=== PATIENT | male | born 1975 | race Caucasian/White ===

== ENCOUNTER 2021-06-12 19:48 | Emergency (ER) | payer MEDICAID ==
[~2021-06-12] VITALS: Ht 182.9 cm; Wt 90.7 kg
[2021-06-12 19:48] VITALS: BP 132/92
--- NOTE | 2021-06-12 19:58 | NUR ---
PT BROUGHT TO BED 1 VIA [facility]
--- NOTE | 2021-06-12 20:18 | NUR ---
PT IS A 46 Y/O MALE BIB AMBULANCE WITH C/O STOMACH PAIN , NAUSEA AND GENERAL BODY PAIN. PT WAS TRYING TO BE SOBER BUT STARTED TO DRINK AGAIN. PAIN HAS BEEN FOR 3 DAYS . PT WAS TAKEN TO [facility] TODAY AND WAS GIVEN LIBRIUM. PT COMPLAINS HE HAS BODY ACHES EVERYWHERE. PT ALELRGIC TO BEE STINGS. PT IS SHAKING AND IS INCONTINENT.
[2021-06-12 20:35] LABS: BASOPHILS # (AUTO) 0.2 K/uL (0.00-0.22); BASOPHILS % (AUTO) 3.4 % (0.0-2.0); EOSINOPHILS # (AUTO) 0.6 K/uL (0-0.4); EOSINOPHILS % (AUTO) 13.5 % (0.0-4.0); HEMATOCRIT 36.3 % (36-52); HEMOGLOBIN 12.5 g/dL (12.0-18.0); LYMPHOCYTES % (AUTO) 41.6 % (20.5-51.1); MEAN CORPUSCULAR HEMOGLOBIN 35 pg (27-31); MEAN CORPUSCULAR HGB CONC 34 g/dL (33-37); MEAN CORPUSCULAR VOLUME 101.7 fL (80-94); MONOCYTES # (AUTO) 0.4 K/uL (0.8-1.0); MONOCYTES % (AUTO) 7.8 % (1.7-9.3); NEUTROPHILS # (AUTO) 1.6 K/uL (1.8-7.7); NEUTROPHILS % (AUTO) 33.7 % (42.2-75.2); PLATELET COUNT (AUTO) 235 K/uL (140-450); RED BLOOD CELL COUNT(AUTO) 3.57 MIL/uL (4.20-6.10); RED CELL DISTRIBUTION WIDTH 14.6 % (11.6-13.7); WHITE BLOOD COUNT (AUTO) 4.8 K/uL (4.8-10.8)
[2021-06-12 20:50] LABS: ALBUMIN 3.6 g/dL (3.4-5.0); ANION GAP 9.4 (8-16); ASPARTATE AMINOTRANSFERASE 65 U/L (15-37); CARBON DIOXIDE 31.3 mmol/L (21-32); CHLORIDE 109 mmol/L (98-107); GFR ARICAN-AMERICAN 103 mL/min (>90); GLUCOSE 96 mg/dL (74-106); POTASSIUM 3.7 mmol/L (3.5-5.1); SALICYLATE 5.5 mg/dL (2.8-20.0); SODIUM SERUM 146 mmol/L (136-145); TOTAL BILIRUBIN 0.2 mg/dL (0.0-1.0); UREA NITROGEN, BLOOD 13 mg/dL (7-18)
[2021-06-12 20:52] LABS: ACETAMINOPHEN < 0.5 ug/ml (10-30)
--- NOTE | 2021-06-13 00:13 | NUR ---
PT LYING QUIETLY ASLEEP
--- NOTE | 2021-06-13 03:12 | NUR ---
pt quietly laying on bed. pt still shaking when waking up . bed lowered to lowest position.
--- NOTE | 2021-06-13 05:42 | NUR ---
PATIENT AMBULATED TO THE BATHROOM-- TOLERATED WELL. ERMD MADE AWARE
--- NOTE | 2021-06-13 06:09 | NUR ---
Thuy slater in EDM - 06/13/21 at 0610 by SERENITY Patient discharged with v/s stable. Written and verbal after care instructions given and explained. Patient verbalized understanding. Ambulatory with steady gait. All questions addressed prior to discharge. Advised to follow up with PMD.
--- NOTE | 2021-06-13 06:10 | NUR ---
Patient discharged with v/s stable. Written and verbal after care instructions given and explained. Patient verbalized understanding. Ambulatory with steady gait. All questions addressed prior to discharge. Advised to follow up with PMD. PT PROVIDED WITH FOOD, BUS PASS AND RESOURCES
[2021-06-13 06:12] VITALS: BP 164/76
--- NOTE | 2021-06-13 06:14 | NUR ---
The patient's care was reviewed and supervised by Radha Johnson RN.
== END 2021-06-13 06:10 | disposition home or self-care (01) ==
LOC: MED 19:48
DX: F10.129 Alcohol abuse with intoxication, unspecified (principal)
CPT/HCPCS: 36415; 80053; 85025; 99285; G0480; G0482